=== PATIENT | female | born 1960 | race Two or more races ===

== ENCOUNTER 2021-09-02 09:52 | Day surgery (SDC) | payer OTHER ==
[~2021-09-02] VITALS: Ht 160 cm; Wt 77.0 kg
[~2021-09-02 09:52] MED LIST: BUPR150ER PO; BUPR150T2 PO; CLON1 PO; CONESTTC; CRUTCH2 USE; HYDACE5 PO; HYDCOR10 PO; Klonopin1 MG PO; LAMO5 PO; PRED10 PO; TRIA80TC TOP
--- NOTE | 2021-09-02 10:40 | NUR ---
09/02/21 1040 GONZALES PRITCHARD 3 ATTEMPTS AT IV. FIRST ATTEMPT BY MA IN R HAND INFILRATED. SECOND ATTEMPT BY MA IN R FOREARM INFILTRATED. THIRD ATTEMPT BY RN SUCCESSFUL IN R AC.
== END 2021-09-02 12:15 | disposition home or self-care (01) ==
LOC: ORSCSDS 09:52
PROVIDERS: Internal Medicine Gastroenterology
PROC: 0DBN8ZX Excision of Sigmoid Colon, Via Natural or Artificial Opening Endoscopic, Diagnostic (ICD-10-PCS; principal; 2021-09-02 11:45)
DX: Z12.11 Encounter for screening for malignant neoplasm of colon (principal); Z80.0 Family history of malignant neoplasm of digestive organs; K63.5 Polyp of colon; K57.30 Diverticulosis of large intestine without perforation or abscess without bleeding; K64.8 Other hemorrhoids; J45.909 Unspecified asthma, uncomplicated; G47.30 Sleep apnea, unspecified; F41.9 Anxiety disorder, unspecified; Z79.899 Other long term (current) drug therapy
CPT/HCPCS: 88305; J2704; J7120

== ENCOUNTER 2022-11-09 07:40 | Day surgery (SDC) | payer OTHER ==
[~2022-11-09] VITALS: Ht 160 cm; Wt 80.4 kg
[2022-11-09] MEDS ORDERED: VITAMIN D5000 UNIT (07:51)
[2022-11-09] MEDS ORDERED: FISH OIL 1,2001 EAC7 (07:51)
--- NOTE | 2022-11-09 08:29 | NUR ---
11/09/22 0829 Cierra Borges TWO ATTEMPTS AT IV. FIRST ATTEMPT BY MA IN R HAND FILTRATED. SECOND ATTEMPT BY MA IN R HAND SUCESSFUL.
== END 2022-11-09 09:30 | disposition home or self-care (01) ==
LOC: ORSCSDS 07:40
PROVIDERS: Internal Medicine Gastroenterology
PROC: 0DJ08ZZ Inspection of Upper Intestinal Tract, Via Natural or Artificial Opening Endoscopic (ICD-10-PCS; principal; 2022-11-09 08:45)
DX: R68.89 Other general symptoms and signs (principal); K44.9 Diaphragmatic hernia without obstruction or gangrene
CPT/HCPCS: 82947; J2704; J7120